=== PATIENT | female | born 1960 | race American Indian/Alaskan Native ===

== ENCOUNTER 2017-10-20 19:20 | Emergency (ER) | payer BC ==
[2017-10-20 19:47] VITALS: O2SAT 97
--- NOTE | 2017-10-20 20:02 | C.PDOC ---
History Of Present Illness 56 y/o F c PMHx HTN p/w L leg pain x 1 week. Accidentally struck leg with hard object at work, denies falling or headstrike. Has been ambulating for the week. Went to [facility] 5 days ago, US showed no DVT and was discharged. Swelling and 10/ 10 pain has been persistent. Denies numbness. Denies fever, chills, chest pain, dyspnea, vomiting, diarrhea. Time Seen by Provider: 10/20/17 19:35 Chief Complaint (Nursing): Lower Extremity Problem/Injury Past Medical History Vital Signs: Last Vital Signs Temp 97.7 F 10/20/17 19:42 Pulse 90 10/20/17 19:42 Resp 16 10/20/17 19:42 BP 159/84 H 10/20/17 19:42 Pulse Ox 97 10/20/17 20:04 - Medical History PMH: HTN, Hypercholesterolemia Denies: Chronic Kidney Disease - [facility] Procedures LEFT HEART CARDIAC CATH (03/09/15) LT HEART ANGIOCARDIOGRAM (03/09/15) Family History: States: [place], CAD - Social History Hx Tobacco Use: No Hx Alcohol Use: No Hx Substance Use: No - Immunization History Hx Tetanus Toxoid Vaccination: No Hx Influenza Vaccination: No Hx Pneumococcal Vaccination: No Review Of Systems Except As Marked, All Systems Reviewed And Found Negative. Constitutional: Negative for: Fever Cardiovascular: Negative for: Chest Pain Physical Exam - Physical Exam Additional Physical Exam Comments: L leg ecchymosis, erythema L leg motor 5/5, sensation to light touch intact. ED Course And Treatment - Laboratory Results Result Diagrams: 10/20/17 20:38 10/20/17 20:38 O2 Sat by Pulse Oximetry: 97 Medical Decision Making Medical Decision Making: Differential: Cellulitis, fracture Plan: Labs, XR XRs negative for fracture. No leukocytosis. Will discharge on Keflex, f/u PMD, instructed to obtain MRI if symptoms persist. Disposition - Disposition Disposition: HOME/ ROUTINE Disposition Time: 22:02 Condition: STABLE Prescriptions: Sulfamethoxazole/Trimethoprim [Bactrim Ds Tablet] 1 each PO BID #14 tablet Instructions: Cellulitis (ED) Forms: [employer] (Yakut) - Clinical Impression Clinical Impression: Leg swelling
[2017-10-20 20:46] LABS: BASO % 0.7 % (0.0-2.0); EOS # 0.2 K/uL (0.0-0.7); EOS % 3.1 % (0.0-4.0); HEMOGLOBIN 12.9 g/dL (11.0-16.0); LYMPH # 1.7 K/uL (1.0-4.3); MEAN CELL VOLUME 88.7 fL (81.0-99.0); MEAN CORPUSCULAR HEMOGLOBIN 30.1 pg (27.0-31.0); MEAN CORPUSCULAR HGB CONC 33.9 g/dL (33.0-37.0); MEAN PLATELET VOLUME 9.6 fL (7.2-11.7); MONO # 0.6 K/uL (0.0-0.8); NEUT # 3.9 K/uL (1.8-7.0); NEUT % 61.2 % (50.0-75.0); NRBC % 0.1 % (0.0-2.0); RBC 4.27 Mil/uL (3.80-5.20); RED CELL DISTRIBUTION WIDTH 12.9 % (11.5-14.5); WHITE BLOOD COUNT 6.4 K/uL (4.8-10.8)
[2017-10-20 20:54] LABS: ALBUMIN 3.9 g/dL (3.5-5.0); ALT/SGPT 36 U/L (9-52); AST/SGOT 33 U/L (14-36); BLOOD UREA NITROGEN 17 mg/dL (7-17); CALCIUM 8.2 mg/dl (8.6-10.4); GFR AFRICAN-AMERICAN > 60; GFR NON-AFRICAN AMERICAN > 60
[2017-10-20 23:13] VITALS: BP 148/78; PULSE 88; RESP 20; TEMP 98.1
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
== END 2017-10-20 21:55 | disposition home or self-care (01) ==
LOC: C.ER 19:20
DX: M79.89 Other specified soft tissue disorders (principal)
CPT/HCPCS: 73590; 73610; 80053; 85025; 86140; 96374; 99284; J1885

== ENCOUNTER 2018-01-03 09:52 | Inpatient (IN) | payer OTHER, BC ==
[2017-12-25 11:05] VITALS: BMI 55.6
[2018-01-03] MEDS ORDERED: Propofol 10 mg/ml Inj (20 ML) ONE (13:40)
[2018-01-03] MEDS ORDERED: Vancomycin 1 gm/D5W 200 ml 1 GM/200 ML BAG IVPB ONE (13:56)
[2018-01-03] MEDS ORDERED: Oxycodone/Acetaminophen 5/325 mg Tab PO PRN (14:13)
[2018-01-03] MEDS ORDERED: Labetalol 25mg/5ml Syringe ONE (14:15)
[2018-01-03] MEDS: HYDROmorphone 0.5 mg/0.5 ml ISec IVP PRN ×2 (15:00→15:26)
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
[2018-01-03] MEDS: Enoxaparin 30 mg Syringe SC SCH (21:42)
--- NOTE | 2018-01-04 01:19 | OP ---
PROCEDURE DATE: 01/03/2018 PREOPERATIVE DIAGNOSIS: Traumatic hematoma of the left leg and ankle. POSTOPERATIVE DIAGNOSIS: Traumatic hematoma of the left leg and ankle. PROCEDURE PERFORMED: Drainage of large infected hematoma of the left leg and ankle with debridement. Repaired of damaged blood vessel and partial adjacent tissue transfer closure. SURGEON: Jeff Velez MD TYPE OF ANESTHESIA: General. BLOOD LOSS: 100 mL. POSTOP CONDITION: Stable. INDICATIONS FOR SURGERY: This is a 57-year-old female, 2 months ago injured her left lower leg and ankle in an accident, developed a large collection which is not dissipated. She is now to undergo operative drainage, as the pain in her leg has gone worse and the area has become somewhat infected. GROSS FINDINGS: There was a mixture of both blood and some pus within the wound. It was widely drained. Approximately 20 to 30 mL of blood and pus were removed. Damaged tibial blood vessel was repaired and was associated with the hematoma. A partial tissue transfer closure was performed. At the conclusion of procedure, however, the central portion of the wound had to be packed open. PROCEDURE: The patient was taken to the operating room. General anesthesia was administered and the left leg was prepped and draped. A transverse incision was made in the ankle over the main area of the collection. A large collection was entered and was drained and clots and pus were removed and cultured. Bleeding was controlled using the Bovie. A blood vessel was repaired. Wound was irrigated with copious amounts of saline solution. A partial tissue transfer closure was performed at the periphery. The central portion of the wound was packed open with saline gauze and dressed sterilely. The patient tolerated the procedure well, took to the recovery room in stable condition. Jeff Velez MD
[2018-01-04] MEDS ORDERED: Vancomycin 1 gm/NS 200 ml 1 GM/200 ML BAG IVPB SCH (02:00)
[2018-01-04 08:23] LABS: BASO % 0.6 % (0.0-2.0); EOS # 0.1 K/uL (0.0-0.7); HEMOGLOBIN 12.3 g/dL (11.0-16.0); LYMPH # 1.5 K/uL (1.0-4.3); LYMPH % 37.3 % (20.0-40.0); MEAN CELL VOLUME 88.5 fL (81.0-99.0); MEAN CORPUSCULAR HEMOGLOBIN 29.6 pg (27.0-31.0); MEAN CORPUSCULAR HGB CONC 33.5 g/dL (33.0-37.0); MEAN PLATELET VOLUME 9.5 fL (7.2-11.7); MONO # 0.3 K/uL (0.0-0.8); MONO % 8.6 % (0.0-10.0); NEUT % 51.5 % (50.0-75.0); RBC 4.16 Mil/uL (3.80-5.20); RED CELL DISTRIBUTION WIDTH 12.9 % (11.5-14.5)
[2018-01-04 08:35] LABS: BLOOD UREA NITROGEN 13 mg/dL (7-17); CALCIUM 8.4 mg/dl (8.6-10.4); GFR AFRICAN-AMERICAN > 60; GFR NON-AFRICAN AMERICAN > 60
[2018-01-04] MEDS ORDERED: Influenza Vaccine 60 mcg/0.5 mL SYR (4YR UP) IM ONE (10:00)
[2018-01-04] MEDS ORDERED: Pneumococcal 23-Valent Vaccine IM ONE (10:00)
[2018-01-04] MEDS: Enoxaparin 30 mg Syringe SC SCH ×2 (10:30→21:10)
[2018-01-04] MEDS ORDERED: Lactated Ringer's 1,000 ML IV ONE (12:30)
[2018-01-04] MEDS ORDERED: Succinylcholine Chloride 20 mg/ml Syr (5 ml) IV ONE (12:55)
[2018-01-04] MEDS ORDERED: Propofol 10 mg/ml Inj (20 ML) ONE (12:55)
[2018-01-04] MEDS ORDERED: Lidocaine Hydrochloride 5 ML INJ ONE (12:56)
[2018-01-04] MEDS ORDERED: HYDROmorphone 0.5 mg/0.5 ml ISec IVP PRN (13:26)
[2018-01-04] MEDS: Vancomycin 1 gm/NS 200 ml 1 GM/200 ML BAG IVPB SCH (14:06)
--- NOTE | 2018-01-04 15:57 | CP.PCM.PN ---
Subjective - Date & Time of Evaluation Date of Evaluation: 01/04/18 Time of Evaluation: 09:55 - Subjective Subjective: Medicine consult note for Dr. Bradford Patient is a 57 year old female who presents to the hospital for surgical repair of non-healing left leg wound with Dr. Velez. Patient states she injured her left leg while at work in 09/2017. She states she works at [employer] and fell on a metal rack. She states that initially following the injury she went to [facility] [place]. She reports that she had ultrasound done at [facility] [place] to rule out DVT and was discharged when the report was negative. She states that she then went to [facility] ED nearly a week after because of persistent pain and swelling. X-rays done in the [facility] ED were negative for fracture or dislocation of the ankle, tibia and fibula. Patient was discharged with prescription for Bactrim and was told to follow up with PMD. Patient was referred by her PMD, Dr. Bradford, to see Dr. Velez when the left ankle wound did not improve. Patient is s/p initial drainage (on 01/03/18) of infected hematoma with Dr. Velez. Consult placed for medical management. PMD: Dr. Bradford PMHx: HTN Meds: Diovan 320mg, ASA 81mg Social: denies alcohol/ tobacco/ drugs Objective - Vital Signs/Intake and Output Vital Signs (last 24 hours): Temp Pulse Resp BP Pulse Ox 97.4 F L 52 L 13 159/87 H 99 01/04/18 13:22 01/04/18 14:45 01/04/18 14:45 01/04/18 14:45 01/04/18 14:45 Intake and Output: 01/04/18 01/04/18 06:59 18:59 Intake Total 1200 Balance 1200 - Medications Medications: Current Medications Aspirin (Ecotrin) 81 mg PO DAILY [facility] Last Admin: 01/04/18 11:16 Dose: Not Given Docusate Sodium (Colace) 100 mg PO BID [facility] Last Admin: 01/04/18 11:16 Dose: Not Given Enoxaparin Sodium (Lovenox) 30 mg SC 1000,2200 [facility] Last Admin: 01/04/18 10:30 Dose: 30 mg Vancomycin/Sodium Chloride (Vancomycin 1 Gm/Ns 200 Ml) 1 gm in 200 mls @ 133 mls/hr IVPB Q12H ANDREW Stop: 01/09/18 13:31 Last Admin: 01/04/18 14:06 Dose: 0 mls Losartan Potassium (Cozaar) 100 mg PO DAILY [facility] Ondansetron HCl (Zofran Inj) 4 mg IVP Q6 PRN PRN Reason: Nausea/Vomiting Oxycodone/Acetaminophen (Percocet 5/325 Mg Tab) 2 tab PO Q4H PRN PRN Reason: pain Stop: 01/06/18 14:14 Pantoprazole Sodium (Protonix Inj) 40 mg IVP DAILY [facility] Last Admin: 01/04/18 10:30 Dose: 40 mg - Labs Labs: 01/04/18 08:12 01/04/18 08:12 - Constitutional Appears: Non-toxic, No Acute Distress - Head Exam Head Exam: ATRAUMATIC, NORMOCEPHALIC - Eye Exam Eye Exam: EOMI - ENT Exam ENT Exam: Mucous Membranes Moist - Respiratory Exam Respiratory Exam: Clear to Ausculation Bilateral, NORMAL BREATHING PATTERN - Cardiovascular Exam Cardiovascular Exam: +S1, +S2 - GI/Abdominal Exam GI & Abdominal Exam: Soft, Normal Bowel Sounds. absent: Tenderness - Extremities Exam Additional comments: SCD applied to right leg, left lower extremity wrapped with clean and dry dressing, intact sensation to bother lower extremities with normal range of motion of both feet - Neurological Exam Neurological Exam: Alert, Awake - Psychiatric Exam Psychiatric exam: Normal Affect - Skin Skin Exam: Warm Assessment and Plan - Assessment and Plan (Free Text) Assessment: Infected left leg hematoma Patient s/p drainage of hematoma with Dr. Velez on 01/03/18, 01/04/18 pain control with percocet 2 tab q4 prn management as per Dr. Velez continue vancomycin 1gam q12h as per Dr. Willoughby OR wound cultures pending Hypertension continue equivalent for home medication Diovan 320mg (non-formulary here) continue to monitor Prophylactic measure lovenox 30mg SC Q10am, Q10PM zofran 4mg IV q6prn nausea colace 100mg PO BID protonix 40mg IVP daily management as per Dr. Bradford
--- NOTE | 2018-01-04 19:31 | CP.PCM.PN ---
Subjective - Date & Time of Evaluation Date of Evaluation: 01/04/18 Time of Evaluation: 08:00 - Subjective Subjective: c/o pain s/p drainage infected hematoma recc _ consider MRI foot/ankle r/o OM Objective - Vital Signs/Intake and Output Vital Signs (last 24 hours): Temp Pulse Resp BP Pulse Ox 98.1 F 67 20 131/85 96 01/04/18 15:56 01/04/18 18:14 01/04/18 15:56 01/04/18 18:14 01/04/18 15:56 - Medications Medications: Current Medications Aspirin (Ecotrin) 81 mg PO DAILY [facility] Last Admin: 01/04/18 11:16 Dose: Not Given Docusate Sodium (Colace) 100 mg PO BID [facility] Last Admin: 01/04/18 19:00 Dose: 100 mg Enoxaparin Sodium (Lovenox) 30 mg SC 1000,2200 [facility] Last Admin: 01/04/18 10:30 Dose: 30 mg Vancomycin/Sodium Chloride (Vancomycin 1 Gm/Ns 200 Ml) 1 gm in 200 mls @ 133 mls/hr IVPB Q12H [facility] Stop: 01/09/18 13:31 Last Admin: 01/04/18 14:06 Dose: 200 mls Losartan Potassium (Cozaar) 100 mg PO DAILY [facility] Last Admin: 01/04/18 16:29 Dose: 100 mg Ondansetron HCl (Zofran Inj) 4 mg IVP Q6 PRN PRN Reason: Nausea/Vomiting Oxycodone/Acetaminophen (Percocet 5/325 Mg Tab) 2 tab PO Q4H PRN PRN Reason: pain Stop: 01/06/18 14:14 Pantoprazole Sodium (Protonix Inj) 40 mg IVP DAILY [facility] Last Admin: 01/04/18 10:30 Dose: 40 mg - Labs Labs: 01/04/18 08:12 01/04/18 08:12 - Constitutional Appears: Non-toxic, Chronically Ill - Head Exam Head Exam: NORMOCEPHALIC - Eye Exam Eye Exam: PERRL. absent: Scleral icterus - ENT Exam ENT Exam: Mucous Membranes Dry, Normal External Ear Exam - Neck Exam Neck Exam: absent: Lymphadenopathy - Respiratory Exam Respiratory Exam: Decreased Breath Sounds - Cardiovascular Exam Cardiovascular Exam: REGULAR RHYTHM - GI/Abdominal Exam GI & Abdominal Exam: Distended, Soft - Rectal Exam Rectal Exam: Deferred - Exam Exam: NORMAL INSPECTION - Extremities Exam Extremities Exam: Pedal Edema, Tenderness. absent: Calf Tenderness - Back Exam Back Exam: absent: CVA tenderness (L), CVA tenderness (R) - Neurological Exam Neurological Exam: Alert, Awake, CN II-XII Intact, Oriented x3 Neuro motor strength exam: Left Upper Extremity: 5, Right Upper Extremity: 5, Left Lower Extremity: 5, Right Lower Extremity: 5 - Psychiatric Exam Psychiatric exam: Normal Mood - Skin Skin Exam: Dry Assessment and Plan (1) Cellulitis and abscess of left leg Status: Acute (2) HTN (hypertension) Status: Acute - Assessment and Plan (Free Text) Assessment: c/o pain s/p drainage infected hematoma recc _ consider MRI foot/ankle r/o OM
[2018-01-05] MEDS: Vancomycin 1 gm/NS 200 ml 1 GM/200 ML BAG IVPB SCH ×2 (00:49→14:06)
--- NOTE | 2018-01-05 06:25 | CON ---
DATE: HISTORY OF PRESENT ILLNESS: A 57-year-old female, admitted to the hospital with chief complaint of pain and swelling in the left leg. The patient had falls. The patient came to the ER, advised admission. The patient has seen surgeon hypertension. PHYSICAL EXAMINATION: GENERAL: The patient is obese. VITAL SIGNS: Temperature 98, pulse 90. HEENT: Within normal limits. NECK: Supple. CHEST: Symmetrical. HEART: Regular. ABDOMEN: Soft. EXTREMITIES: No edema ____ left leg swollen. IMPRESSION: The patient suffered from hematoma on the left leg. Patient bed rest, antibiotics, incision drainage. Sean Bradford MD cc:
--- NOTE | 2018-01-05 07:19 | CP.PCM.PN ---
Subjective - Date & Time of Evaluation Date of Evaluation: 01/05/18 Time of Evaluation: 07:14 - Subjective Subjective: PGY-[address] Bradford's Service: Pt seen and examined at bedside. Nursing reports patient blood pressure elevated overnight. Scheduled for OR tomorrow, 01/06/18, with Dr. Velez. Patient states pain from surgery well-controlled, and denies headache, vision changes, SOB, or chest pain. She states she is tolerating her diet and moving her bowels. Objective - Vital Signs/Intake and Output Vital Signs (last 24 hours): Temp Pulse Resp BP Pulse Ox 98.3 F 71 20 152/96 H 95 01/05/18 04:26 01/05/18 04:26 01/05/18 04:26 01/05/18 05:00 01/05/18 04:26 Intake and Output: 01/05/18 01/05/18 06:59 18:59 Intake Total 440 Balance 440 - Medications Medications: Current Medications Aspirin (Ecotrin) 81 mg PO DAILY [facility] Last Admin: 01/04/18 11:16 Dose: Not Given Docusate Sodium (Colace) 100 mg PO BID [facility] Last Admin: 01/04/18 19:00 Dose: 100 mg Enoxaparin Sodium (Lovenox) 30 mg SC 1000,2200 [facility] Last Admin: 01/04/18 21:10 Dose: 30 mg Vancomycin/Sodium Chloride (Vancomycin 1 Gm/Ns 200 Ml) 1 gm in 200 mls @ 133 mls/hr IVPB Q12H [facility] Stop: 01/09/18 13:31 Last Admin: 01/05/18 00:49 Dose: 133 mls/hr Losartan Potassium (Cozaar) 100 mg PO DAILY [facility] Last Admin: 01/04/18 16:29 Dose: 100 mg Ondansetron HCl (Zofran Inj) 4 mg IVP Q6 PRN PRN Reason: Nausea/Vomiting Oxycodone/Acetaminophen (Percocet 5/325 Mg Tab) 2 tab PO Q4H PRN PRN Reason: pain Stop: 01/06/18 14:14 Pantoprazole Sodium (Protonix Inj) 40 mg IVP DAILY [facility] Last Admin: 01/04/18 10:30 Dose: 40 mg - Labs Labs: 01/04/18 08:12 01/04/18 08:12 - Additional Findings Additional findings: - Constitutional Appears: Non-toxic, No Acute Distress - Head Exam Head Exam: ATRAUMATIC, NORMOCEPHALIC - Eye Exam Eye Exam: EOMI - ENT Exam ENT Exam: Mucous Membranes Moist - Respiratory Exam Respiratory Exam: Clear to Ausculation Bilateral, NORMAL BREATHING PATTERN - Cardiovascular Exam Cardiovascular Exam: +S1, +S2 - GI/Abdominal Exam GI & Abdominal Exam: Soft, Normal Bowel Sounds. absent: Tenderness - Extremities Exam Additional comments: SCD applied to right leg, left lower extremity wrapped with clean and dry dressing, intact sensation to bother lower extremities with normal range of motion of both feet - Neurological Exam Neurological Exam: Alert, Awake - Psychiatric Exam Psychiatric exam: Normal Affect - Skin Skin Exam: Warm Assessment and Plan - Assessment and Plan (Free Text) Plan: Infected left leg hematoma Patient s/p drainage of hematoma with Dr. Velez on 01/03/18, 01/04/18 - scheduled for revision tomorrow, 01/06/18 pain control with percocet 2 tab q4 prn management as per Dr. Velez continue vancomycin 1gam q12h as per Dr. Willoughby OR wound cultures (01/03/18): No growth x 24 hours Hypertension Poor controlled overnight - continue home Losartan 100mg PO Daily (home medication Diovan 320mg (non- formulary here)) - start Chlorthalidone 25mg PO Q24H - changed diet to low-salt Prophylactic measure lovenox 30mg SC Q10am, Q10PM zofran 4mg IV q6prn nausea colace 100mg PO BID protonix 40mg IVP daily Michelet Teixeira PGY-[address] Bradford
[2018-01-05 07:56] LABS: BASO % 0.7 % (0.0-2.0); EOS # 0.1 K/uL (0.0-0.7); EOS % 2.3 % (0.0-4.0); HEMOGLOBIN 12.7 g/dL (11.0-16.0); LYMPH # 1.2 K/uL (1.0-4.3); LYMPH % 28.7 % (20.0-40.0); MEAN CELL VOLUME 88.9 fL (81.0-99.0); MEAN CORPUSCULAR HEMOGLOBIN 29.5 pg (27.0-31.0); MEAN CORPUSCULAR HGB CONC 33.2 g/dL (33.0-37.0); MEAN PLATELET VOLUME 9.8 fL (7.2-11.7); MONO # 0.4 K/uL (0.0-0.8); MONO % 10.6 % (0.0-10.0); NEUT # 2.4 K/uL (1.8-7.0); NEUT % 57.7 % (50.0-75.0); NRBC % 0.1 % (0.0-2.0); RBC 4.3 Mil/uL (3.80-5.20); RED CELL DISTRIBUTION WIDTH 13.1 % (11.5-14.5); WHITE BLOOD COUNT 4.1 K/uL (4.8-10.8)
[2018-01-05 08:11] LABS: ALBUMIN 3.6 g/dL (3.5-5.0); ALT/SGPT 29 U/L (9-52); AST/SGOT 21 U/L (14-36); BLOOD UREA NITROGEN 12 mg/dL (7-17); CALCIUM 8.3 mg/dl (8.6-10.4); GFR AFRICAN-AMERICAN > 60; GFR NON-AFRICAN AMERICAN > 60
[2018-01-05] MEDS: Enoxaparin 30 mg Syringe SC SCH ×2 (09:46→22:12)
--- NOTE | 2018-01-05 10:23 | OP ---
DATE: 01/04/2018 PREOPERATIVE DIAGNOSIS: Infected hematoma of the left leg, status post incision and drainage. POSTOPERATIVE DIAGNOSIS: Infected hematoma of the left leg, status post incision and drainage. PROCEDURE PERFORMED: Debridement of infected hematoma left leg with change of packing and pulse irrigation. SURGEON: Jeff Velez MD ANESTHESIA: General. ESTIMATED BLOOD LOSS: 30 mL POSTOPERATIVE CONDITION: Stable. INDICATIONS FOR SURGERY: This is a staged procedure whereby the patient is taken back to the operating room, status post drainage of a large hematoma of the leg yesterday. The packing is very deep, split back general anesthesia. GROSS FINDINGS: There was some more hematoma that was drained. The infection appeared to be better. A debridement was carried out. DESCRIPTION OF PROCEDURE: The patient was taken to the operating room. General anesthesia administered and the left leg was prepped and draped after the packing was removed. The wound was aggressively debrided and further hematoma collection were drained and cultured. The bleeding was controlled using a Bovie. The previously damaged blood vessel was again repaired with Prolene. The wound was irrigated, was pulse irrigated with saline and solution and peripherally a tissue flap closure was performed. The central portion was packed open with gauze. The patient tolerated the procedure well, returned to recovery room in stable condition. Jeff Velez MD
--- NOTE | 2018-01-05 18:09 | CP.PCM.PN ---
Subjective - Date & Time of Evaluation Date of Evaluation: 01/05/18 Time of Evaluation: 09:00 - Subjective Subjective: c/o pain left ankle afeb nad awake alert IV rx reordered Objective - Vital Signs/Intake and Output Vital Signs (last 24 hours): Temp Pulse Resp BP Pulse Ox 97.9 F 59 L 20 138/97 H 97 01/05/18 15:34 01/05/18 15:34 01/05/18 15:34 01/05/18 15:34 01/05/18 15:34 Intake and Output: 01/05/18 01/05/18 06:59 18:59 Intake Total 440 600 Balance 440 600 - Medications Medications: Current Medications Aspirin (Ecotrin) 81 mg PO DAILY [facility] Last Admin: 01/05/18 09:46 Dose: 81 mg Chlorthalidone (Hygroton) 25 mg PO Q24H [facility] Docusate Sodium (Colace) 100 mg PO BID [facility] Last Admin: 01/05/18 09:45 Dose: 100 mg Enoxaparin Sodium (Lovenox) 30 mg SC 1000,2200 [facility] Last Admin: 01/05/18 09:46 Dose: 30 mg Vancomycin/Sodium Chloride (Vancomycin 1 Gm/Ns 200 Ml) 1 gm in 200 mls @ 133 mls/hr IVPB Q12H [facility] Stop: 01/09/18 13:31 Last Admin: 01/05/18 14:06 Dose: 133 mls/hr Losartan Potassium (Cozaar) 100 mg PO DAILY [facility] Last Admin: 01/05/18 09:46 Dose: 100 mg Ondansetron HCl (Zofran Inj) 4 mg IVP Q6 PRN PRN Reason: Nausea/Vomiting Oxycodone/Acetaminophen (Percocet 5/325 Mg Tab) 2 tab PO Q4H PRN PRN Reason: pain Stop: 01/06/18 14:14 Pantoprazole Sodium (Protonix Inj) 40 mg IVP DAILY [facility] Last Admin: 01/05/18 09:46 Dose: 40 mg - Labs Labs: 01/05/18 07:48 01/05/18 07:48 - Constitutional Appears: Non-toxic, Chronically Ill - Head Exam Head Exam: NORMOCEPHALIC - Eye Exam Eye Exam: PERRL - ENT Exam ENT Exam: Mucous Membranes Dry - Neck Exam Neck Exam: absent: Lymphadenopathy - Respiratory Exam Respiratory Exam: Decreased Breath Sounds - Cardiovascular Exam Cardiovascular Exam: REGULAR RHYTHM - GI/Abdominal Exam GI & Abdominal Exam: Distended, Soft - Rectal Exam Rectal Exam: Deferred - Exam Exam: NORMAL INSPECTION - Extremities Exam Extremities Exam: absent: Pedal Edema - Back Exam Back Exam: absent: CVA tenderness (L), CVA tenderness (R) - Neurological Exam Neurological Exam: Alert, Awake, Oriented x3 - Psychiatric Exam Psychiatric exam: Normal Mood - Skin Skin Exam: Dry Assessment and Plan (1) Cellulitis and abscess of left leg Status: Acute (2) HTN (hypertension) Status: Acute - Assessment and Plan (Free Text) Assessment: cont IV then PO rx MRI as out pt wound care and close follow up
[2018-01-06] MEDS: Vancomycin 1 gm/NS 200 ml 1 GM/200 ML BAG IVPB SCH ×2 (01:10→12:45)
[2018-01-06] MEDS: Enoxaparin 30 mg Syringe SC SCH ×2 (09:01→21:17)
[2018-01-06] MEDS ORDERED: Propofol 10 mg/ml Inj (20 ML) ONE (10:23)
[2018-01-06] MEDS ORDERED: Midazolam 2 MG/2 ML VIAL ONE (10:23)
[2018-01-06] MEDS ORDERED: Succinylcholine Chloride 20 mg/ml Syr (5 ml) IV ONE (10:30)
[2018-01-06] MEDS ORDERED: Phenylephrine 10 mg/ml Inj ONE (10:37)
[2018-01-06] MEDS ORDERED: ePHEDrine 50 mg/ml Inj ONE (10:37)
[2018-01-06] MEDS ORDERED: Bacitracin Ointment 30 GM TUBE ONE (10:47)
[2018-01-06] MEDS: HYDROmorphone 0.5 mg/0.5 ml ISec IVP PRN ×2 (11:02→11:15)
[2018-01-06] MEDS ORDERED: HYDROmorphone 0.5 mg/0.5 ml ISec ONE (11:15)
[2018-01-06] MEDS ORDERED: Oxycodone/Acetaminophen 5/325 mg Tab PO PRN (17:03)
--- NOTE | 2018-01-06 22:34 | OP ---
PROCEDURE DATE: 01/06/2018 PREOPERATIVE DIAGNOSIS: Infected hematoma, large open wound of the left leg. POSTOPERATIVE DIAGNOSIS: Infected hematoma, large open wound of the left leg. PROCEDURE PERFORMED: 1. Re-drainage of infected hematoma. 2. Re-repair of the damaged blood vessel. 3. Advancement flap closure greater than 30 sq cm, left leg wound. SURGEON: Jeff Velez MD TYPE OF ANESTHESIA: General. ESTIMATED BLOOD LOSS: 50 mL. POSTOPERATIVE CONDITION: Stable. INDICATIONS FOR SURGERY: This is a 57-year-old female with a large open wound of the left leg secondary to a drained hematoma two days ago. She is taken back to the OR and a staged procedure for final debridement and flap closure. DESCRIPTION OF PROCEDURE: The patient was taken to the operating room. General anesthesia was administered and the left leg and ankle were prepped and draped. The leg was again aggressively debrided any remaining collections and hematoma was drained. The blood vessel was again repaired, and the wound was pulse irrigated with saline and Kantrex solution. Generous advancement flaps were raised centrally and a full thickness advancement flap closure was performed using multiple layers of Monocryl, subcuticular Monocryl, and skin clips. The patient tolerated the procedure well, returned to recovery room in stable condition. Jeff Velez MD
[2018-01-07] MEDS: Vancomycin 1 gm/NS 200 ml 1 GM/200 ML BAG IVPB SCH ×2 (01:40→13:42)
[2018-01-07] MEDS: Enoxaparin 30 mg Syringe SC SCH ×2 (09:33→21:26)
--- NOTE | 2018-01-07 16:19 | CP.PCM.PN ---
Subjective - Date & Time of Evaluation Date of Evaluation: 01/07/18 Time of Evaluation: 10:00 - Subjective Subjective: no new positive cultures left ankle wound healing needs out pt MRI left ankle Objective - Vital Signs/Intake and Output Vital Signs (last 24 hours): Temp Pulse Resp BP Pulse Ox 98 F 70 20 150/70 98 01/07/18 08:00 01/07/18 08:00 01/07/18 08:00 01/07/18 08:00 01/07/18 08:00 Intake and Output: 01/07/18 01/07/18 06:59 18:59 Intake Total 400 300 Balance 400 300 - Medications Medications: Current Medications Aspirin (Ecotrin) 81 mg PO DAILY [facility] Last Admin: 01/07/18 09:32 Dose: 81 mg Chlorthalidone (Hygroton) 25 mg PO Q24H [facility] Last Admin: 01/06/18 17:20 Dose: 25 mg Docusate Sodium (Colace) 100 mg PO BID [facility] Last Admin: 01/07/18 09:32 Dose: 100 mg Enoxaparin Sodium (Lovenox) 30 mg SC 1000,2200 [facility] Last Admin: 01/07/18 09:33 Dose: 30 mg Vancomycin/Sodium Chloride (Vancomycin 1 Gm/Ns 200 Ml) 1 gm in 200 mls @ 133 mls/hr IVPB Q12H [facility] Stop: 01/09/18 13:31 Last Admin: 01/07/18 13:42 Dose: 133 mls/hr Losartan Potassium (Cozaar) 100 mg PO DAILY [facility] Last Admin: 01/07/18 09:32 Dose: 100 mg Ondansetron HCl (Zofran Inj) 4 mg IVP Q6 PRN PRN Reason: Nausea/Vomiting Oxycodone/Acetaminophen (Percocet 5/325 Mg Tab) 2 tab PO Q6 PRN PRN Reason: Pain, severe (8-10) Stop: 01/09/18 18:01 Last Admin: 01/06/18 17:21 Dose: 2 tab Pantoprazole Sodium (Protonix Inj) 40 mg IVP DAILY [facility] Last Admin: 01/07/18 09:33 Dose: 40 mg - Labs Labs: 01/05/18 07:48 01/05/18 07:48 - Constitutional Appears: Non-toxic, Chronically Ill - Head Exam Head Exam: NORMOCEPHALIC - Eye Exam Eye Exam: PERRL - ENT Exam ENT Exam: Mucous Membranes Dry - Neck Exam Neck Exam: absent: Lymphadenopathy - Cardiovascular Exam Cardiovascular Exam: REGULAR RHYTHM - GI/Abdominal Exam GI & Abdominal Exam: Distended - Rectal Exam Rectal Exam: Deferred - Exam Exam: NORMAL INSPECTION - Extremities Exam Extremities Exam: Pedal Edema, Tenderness. absent: Calf Tenderness - Back Exam Back Exam: absent: CVA tenderness (L), CVA tenderness (R) - Neurological Exam Neurological Exam: Alert, Awake, Oriented x3 - Psychiatric Exam Psychiatric exam: Normal Mood - Skin Skin Exam: Dry Assessment and Plan (1) Cellulitis and abscess of left leg Status: Acute (2) HTN (hypertension) Status: Acute - Assessment and Plan (Free Text) Assessment: cont iv rx await cultures out pt follow up and MRI
[2018-01-08 01:15] VITALS: RESP 20
[2018-01-08] MEDS: Vancomycin 1 gm/NS 200 ml 1 GM/200 ML BAG IVPB SCH (01:33)
[2018-01-08 08:00] VITALS: BP 143/68; PULSE 60; TEMP 97.9; O2SAT 98
[2018-01-08] MEDS: Enoxaparin 30 mg Syringe SC SCH (10:00)
[2018-01-08] MEDS ORDERED: Pantoprazole 40 mg EC Tab PO SCH (10:00)
--- NOTE | 2018-01-08 11:23 | CP.PCM.PN ---
Subjective - Date & Time of Evaluation Date of Evaluation: 01/08/18 Time of Evaluation: 09:15 - Subjective Subjective: Pgy-[address] Bradford Patient seen and examined at bedside. No acute events reported overnight. Patient reports no pain at her left ankle. Patient is eating and drinking well. Patient denies fever, chills, shortness of breath, chest pain, nausea, vomiting , or urinary symptoms. Objective - Vital Signs/Intake and Output Vital Signs (last 24 hours): Temp Pulse Resp BP Pulse Ox 97.9 F 60 20 143/68 98 01/08/18 07:00 01/08/18 07:00 01/08/18 07:00 01/08/18 07:00 01/08/18 07:00 Intake and Output: 01/08/18 01/08/18 06:59 18:59 Intake Total 240 Balance 240 - Medications Medications: Current Medications Aspirin (Ecotrin) 81 mg PO DAILY [facility] Last Admin: 01/08/18 10:00 Dose: 81 mg Chlorthalidone (Hygroton) 25 mg PO Q24H [facility] Last Admin: 01/07/18 18:41 Dose: 25 mg Docusate Sodium (Colace) 100 mg PO BID [facility] Last Admin: 01/08/18 10:00 Dose: 100 mg Enoxaparin Sodium (Lovenox) 30 mg SC 1000,2200 [facility] Last Admin: 01/08/18 10:00 Dose: 30 mg Vancomycin/Sodium Chloride (Vancomycin 1 Gm/Ns 200 Ml) 1 gm in 200 mls @ 133 mls/hr IVPB Q12H [facility] Stop: 01/09/18 13:31 Last Admin: 01/08/18 01:33 Dose: 133 mls/hr Losartan Potassium (Cozaar) 100 mg PO DAILY [facility] Last Admin: 01/08/18 10:00 Dose: 100 mg Ondansetron HCl (Zofran Inj) 4 mg IVP Q6 PRN PRN Reason: Nausea/Vomiting Oxycodone/Acetaminophen (Percocet 5/325 Mg Tab) 2 tab PO Q6 PRN PRN Reason: Pain, severe (8-10) Stop: 01/09/18 18:01 Last Admin: 01/06/18 17:21 Dose: 2 tab Pantoprazole Sodium (Protonix Ec Tab) 40 mg PO DAILY [facility] Last Admin: 01/08/18 10:00 Dose: 40 mg - Labs Labs: 01/05/18 07:48 01/05/18 07:48 - Constitutional Appears: Non-toxic, No Acute Distress - Head Exam Head Exam: ATRAUMATIC, NORMAL INSPECTION - Eye Exam Eye Exam: EOMI, Normal appearance - ENT Exam ENT Exam: Mucous Membranes Moist - Respiratory Exam Respiratory Exam: Clear to Ausculation Bilateral, NORMAL BREATHING PATTERN. absent: Wheezes, Respiratory Distress - Cardiovascular Exam Cardiovascular Exam: REGULAR RHYTHM, +S1, +S2. absent: Murmur - GI/Abdominal Exam GI & Abdominal Exam: Soft, Normal Bowel Sounds. absent: Tenderness - Extremities Exam Extremities Exam: Full ROM Additional comments: lower extremity dressing clean and dry dressing, full of motion of both feet, sensation intact - Neurological Exam Neurological Exam: Alert, Awake, Oriented x3 - Psychiatric Exam Psychiatric exam: Normal Affect, Normal Mood - Skin Skin Exam: Normal Color, Warm Assessment and Plan - Assessment and Plan (Free Text) Assessment: Infected left leg hematoma Patient s/p drainage of hematoma with Dr. Velez on 01/03/18, 01/04/18, and 01/06 pain control with percocet 2 tab q4 prn management as per Dr. Velez Keflex 500mg TID for [address] Willoughby Hypertension - continue home Losartan 100mg PO Daily (home medication Diovan 320mg (non- formulary here)) - start Chlorthalidone 25mg PO Q24H - changed diet to low-salt Prophylactic measure lovenox 30mg SC Q10am, Q10PM zofran 4mg IV q6prn nausea colace 100mg PO BID protonix 40mg IVP daily Patient is stable to be discharge per surgery All management per Dr. Bradford
--- NOTE | 2018-01-08 13:09 | CP.PCM.PN ---
Subjective - Date & Time of Evaluation Date of Evaluation: 01/08/18 Time of Evaluation: 09:00 - Subjective Subjective: DOING WELL D/C ON PO RX FOR FOLLOW UP WITH DR WINCHESTER MRI OUT PT Objective - Vital Signs/Intake and Output Vital Signs (last 24 hours): Temp Pulse Resp BP Pulse Ox 97.9 F 60 20 143/68 98 01/08/18 07:00 01/08/18 07:00 01/08/18 07:00 01/08/18 07:00 01/08/18 07:00 Intake and Output: 01/08/18 01/08/18 06:59 18:59 Intake Total 240 Balance 240 - Labs Labs: 01/05/18 07:48 01/05/18 07:48 - Constitutional Appears: Non-toxic, Chronically Ill - Head Exam Head Exam: NORMOCEPHALIC - Eye Exam Eye Exam: PERRL - ENT Exam ENT Exam: Mucous Membranes Dry - Neck Exam Neck Exam: absent: Lymphadenopathy - Respiratory Exam Respiratory Exam: Decreased Breath Sounds - Cardiovascular Exam Cardiovascular Exam: REGULAR RHYTHM - GI/Abdominal Exam GI & Abdominal Exam: Distended, Soft - Rectal Exam Rectal Exam: Deferred Assessment and Plan (1) Cellulitis and abscess of left leg Status: Acute (2) HTN (hypertension) Status: Acute - Assessment and Plan (Free Text) Assessment: D/C ON PO KEFLEX FUP IN OFFICE
--- NOTE | 2018-01-08 13:26 | PN ---
DATE: The patient supportive care, antibiotics. Sean Bradford MD [facility] # [id number]
--- NOTE | 2018-01-10 18:10 | PQF DEBRID ---
To Jeff Velez MD, Please clarify if the Debridement was EXCISIONAL OR NON EXCISIONAL for the Procedure done on 01/04 - Debridement 01/06 - Debridment Please check the Indicators below.\ Thank you, This form is a permanent part of the medical record Clarification of your documentation is requested to better reflect the severity of illness and intensity of treatment of your patient. Indicators present [] Documentation of wound care / debridement [] Technique: [] [] Instrument used:[] [] Nature of Tissue Removed:[] [] Appearance of Wound:[] [] Size of Wound: [] [] Depth of Debridement: [] [] Other: [] Location in the medical record that reflects the above clinical findings: [] Other Treatment Provided: [] PHYSICIAN'S RESPONSE Based on your medical judgment, can you further clarify the precise NATURE, DEPTH, EXTENT and / or METHODS of wound debridement utilized in this case: [] EXCISIONAL debridement use of a scalpel / blade to cut away tissue Depth (subcutaneous, fascia, muscle, soft tissue and bone) [] Size of Wound [] NON-EXCISIONAL debridement chemical, scrubbing, trimming with a scissor/ versajet [] Other, please indicate: [] [] If unable to determine, please check the box, sign and date. In responding to this query, please exercise your independent professional judgment. The fact that a question is asked does not imply that any particular answer is desired or expected. Thank you for your clarification on this documentation. If you have any questions please call:[ ] * Thank you, [ Jennifer Mcdaniels, [facility]] plate straightener [id number]
--- NOTE | 2018-01-15 07:56 | PN ---
DATE: 01/07/2018 The patient is to get supportive care, antibiotics, ID evaluation. Sean Bradford MD
== END 2018-01-08 12:57 | disposition home or self-care (01) | DRG 574 ==
LOC: C.SDS 09:52 → C.9S 14:14 → C.6T 14:50
PROVIDERS: ADMIT Surgery; ATTEND Surgery
PROC: 06QY0ZZ Repair Lower Vein, Open Approach (ICD-10-PCS; 2018-01-03)
PROC: 0H9LXZX Drainage of Left Lower Leg Skin, External Approach, Diagnostic (ICD-10-PCS; 2018-01-03)
PROC: 0HXLXZZ Transfer Left Lower Leg Skin, External Approach (ICD-10-PCS; principal; 2018-01-03 12:45)
PROC: 06QY0ZZ Repair Lower Vein, Open Approach (ICD-10-PCS; 2018-01-04)
PROC: 0JRM07Z Replacement of Left Upper Leg Subcutaneous Tissue and Fascia with Autologous Tissue Substitute, Open Approach (ICD-10-PCS; 2018-01-04)
PROC: 0HBLXZZ Excision of Left Lower Leg Skin, External Approach (ICD-10-PCS; 2018-01-04)
PROC: 06QY0ZZ Repair Lower Vein, Open Approach (ICD-10-PCS; 2018-01-06)
PROC: 0HXLXZZ Transfer Left Lower Leg Skin, External Approach (ICD-10-PCS; 2018-01-06)
PROC: 0H9LXZZ Drainage of Left Lower Leg Skin, External Approach (ICD-10-PCS; 2018-01-06)
DX: L03.116 Cellulitis of left lower limb (principal); Z68.43 Body mass index [BMI] 50.0-59.9, adult; E78.00 Pure hypercholesterolemia, unspecified; L02.416 Cutaneous abscess of left lower limb; I10 Essential (primary) hypertension; S80.12XA Contusion of left lower leg, initial encounter; X58.XXXA Exposure to other specified factors, initial encounter; E66.9 Obesity, unspecified

== ENCOUNTER 2019-01-03 08:24 | Day surgery (SDC) | payer BC | END 2019-01-03 14:49 | disposition home or self-care (01) | LOC: C.CATHLAB 08:24 | DX: R94.39 Abnormal result of other cardiovascular function study (principal); R07.2 Precordial pain; I10 Essential (primary) hypertension ==